=== PATIENT | female | born 1950 | race Caucasian/White ===

== ENCOUNTER 2019-07-24 11:55 | Inpatient (IN) | payer MEDICARE, MEDICAID ==
[~2019-07-24] VITALS: Ht 160 cm; Wt 84.0 kg
[~2019-07-24 11:55] MED LIST: B12,B-12,B 12500 MC1 PO; CARBATROL300 MG PO; COLACE100 MG PEG; FLOMAX0.4 MG PO; LAMICTAL100 MG PEG; MAGNESIUM250 M1 PEG; NEXIUM40 MG PEG; Oyster Shell Calcium; PERCOCET 325 MG1 TA2; PHENOBARBITAL97.2 MG PO; SEROQUEL XR400 MG PO; Synthroid,Levo25 MCG PEG; TYLENOL500 MG PO; VITAMIN B COMPL1 CA1 PO; VITAMIN D400 I1 PO; ZOCOR20 MG PO
[2019-07-24 12:04] VITALS: BP 99/60
--- NOTE | 2019-07-24 12:30 | NUR ---
PT INCONTINENT FOR LARGE AMT SOFT BROWN STOOL. PT CLEANED WITH NEW LINENS. PT TOLERATED.
--- NOTE | 2019-07-24 13:42 | NUR ---
PT INCONTINENT OF LARGE AMT LOOSE BROWN STOOLS. RASH NOTED TO PT'S RIGHT HIP AND UPPER LEG.
[2019-07-24] MEDS ORDERED: ZOVIRAX200 MG/51 PO (13:43)
--- NOTE | 2019-07-24 14:08 | NUR ---
PT INCONTINENT FOR LARGE AMT LIGHT BROWN STOOL. PT GIVEN CLEAN LINENS. CAREGIVER AT BEDSIDE.
[2019-07-24 14:11] LABS: BUN 31 mg/dl (7-24); CHLORIDE 106 mmol/L (98-107); SODIUM 137 mmol/L (136-145)
[2019-07-24 14:13] LABS: POTASSIUM 7.2 mmol/L (3.5-5.1)
--- NOTE | 2019-07-24 14:16 | NUR ---
CRITICAL LAB: POTASSIUM 7.2. DR ARNDT NOTIFIED.
--- NOTE | 2019-07-24 14:56 | NUR ---
PT INCONTINENT OF SMALL AMT BROWN LOOSE STOOLS. PT CLEANED UP
[2019-07-24 15:17] VITALS: BP 125/41
[2019-07-24 16:40] VITALS: BP 128/44
--- NOTE | 2019-07-24 17:29 | NUR ---
SUNRISE AWARE PT TO BE ADMITTED FOR PNEUMONIA AND HYPERKALEMIA
[2019-07-24 17:39] VITALS: BP 105/48
[2019-07-24 18:20] VITALS: BP 118/89
--- NOTE | 2019-07-24 18:20 | NUR ---
Time: 1819 A 68 year old FEMALE admitted to 5E under services of ADAM KIM DO. Pt. arrived via stretcher from ER. Chief complaint: COUGH/CONGESTION, K+ 6.6 ON BLOODWORK AND SHINGLES . SIRISHA CHUN
--- NOTE | 2019-07-24 18:30 | NUR ---
PT PLACED ON WARMING BLANKET FOR A RECTAL TEMP OF 93.8 AWARE
[2019-07-24 19:14] LABS: ABG BASE EXCESS 3.1 mmol/L (-2.0-2.0); ABG HCO3 26.9 mmol/l (22-26); ABG O2 SATURATION 96.2 % (95-97); ARTERIAL BLOOD GAS PCO2 38.2 mmHg (35-45); ARTERIAL BLOOD GAS PH 7.456 (7.35-7.45); ARTERIAL BLOOD GAS PO2 84.7 mmHg (80-90)
[2019-07-24] MEDS ORDERED: AMLODIPINE BESYL5 MG PEG (19:25)
[2019-07-24] MEDS ORDERED: EXELON1 EACH T (19:26)
[2019-07-24] MEDS ORDERED: DOXAZOSIN4 MG PEG (19:26)
[2019-07-24] MEDS ORDERED: FEOSOL,FER220 MG/5 M PEG (19:27)
[2019-07-24] MEDS ORDERED: GLUCERNA 1.5 C237 ML PEG ×2 (19:28→20:39)
[2019-07-24] MEDS ORDERED: LANSOPRAZO15 MG/5 ML PEG (19:36)
[2019-07-24] MEDS ORDERED: KEPPRA500 MG PEG (19:37)
[2019-07-24] MEDS ORDERED: CLARITIN10 MG PEG (19:38)
[2019-07-24 20:00] VITALS: BP 127/69
[2019-07-24] MEDS ORDERED: REGLAN 5MG/5 MG/5 ML PEG (20:11)
[2019-07-24] MEDS ORDERED: LOPRESSOR50 M1 PEG (20:12)
[2019-07-24] MEDS ORDERED: NITROFURANTOIN100 M3 PEG (20:15)
[2019-07-24] MEDS ORDERED: NEUDEXT PEG (20:16)
[2019-07-24] MEDS ORDERED: ONDANSETRON ODT8 MG SL (20:17)
[2019-07-24] MEDS ORDERED: OYSTER SHELL 51 EAC1 PO (20:20)
[2019-07-24] MEDS ORDERED: PHENOBARBITAL97.2 MG PEG (20:23)
[2019-07-24] MEDS ORDERED: POTASSIUM20 MEQ/16 PEG (20:26)
[2019-07-24] MEDS ORDERED: OYSTER SHELL 51 EACH PEG (20:30)
[2019-07-24 21:22] LABS: BUN 29 mg/dl (7-24); CHLORIDE 111 mmol/L (98-107); CREATININE 0.92 mg/dL (0.55-1.02); POTASSIUM 4.9 mmol/L (3.5-5.1); SODIUM 145 mmol/L (136-145)
--- NOTE | 2019-07-24 21:23 | NUR ---
CALLED DR. SEYMOUR IN REGARDS TO HOME MEDICATIONS.
--- NOTE | 2019-07-24 23:30 | NUR ---
ENTERED PT'S ROOM TO CHECK ON PT. FOUND PT LABORED BREATHING, DROWLING AND O2 OF 88%. SAT PT UP IN BED AND O2 CONTINUED TO DROP. CALLED FOR SOME ASSISTANCE AND REQUESTED SUCTION, A NON REBREATHER, AND RESPIRATORY. ATTEMPTED TO SUCTION PT AND UNSUCCESSFUL, O2 DROPPED DOWN TO 72%. CHARGE NURSE CALLED PT'S BROTHER (GUARDIAN) AND NOTIFIED HIM OF PT'S STATUS. RESPIRATORY CAME AND SUCTIONED PT. PT CAME UP TO 90% PT BEGAN BREATHING AT A SLOWER RATE AND REMAINED STABLE. BROTHER CAME UP AND STATED THAT HE WAS GOING TO STAY WITH PT.
--- NOTE | 2019-07-24 23:34 | NUR ---
PT'S BROTHER CALLED & UPDATED ON STATUS. AWARE THEY ARE ALLOWED TO VISIT. SECURITY NOTIFIED THAT THEY MAY BE COMING UP TO THE FLOOR.
--- NOTE | 2019-07-25 05:59 | NUR ---
INFECTIOUS DISEASE CONSULT CALLED OUT. DR. TOMLINSON IS TRANSMITTER ENGINEER IN CHARGE.
[2019-07-25 06:44] LABS: HEMATOCRIT 30.7 % (37.0-47.0); HEMOGLOBIN 9.7 g/dl (12.0-16.0); MEAN CELL VOLUME 104.8 fl (81.0-99.0); MEAN CORPUSCULAR HGB 33.1 pg (27.0-31.0); MEAN CORPUSCULAR HGB CONC 31.6 g/dl (33.0-37.0); MEAN PLATELET VOLUME 11.2 fl (9.6-12.3); PLATELET COUNT AUTOMATED 100 10*3/uL (130-400); RED BLOOD COUNT 2.93 10*6/uL (4.10-5.10); RED CELL DISTRI WIDTH 16.8 % (0-14.5); WHITE BLOOD COUNT 7.9 10*3/uL (4.8-10.8)
[2019-07-25 07:06] LABS: ALBUMIN 2.4 gm/dl (3.1-4.5); BUN 29 mg/dl (7-24); CHLORIDE 108 mmol/L (98-107); CHOLESTEROL 97 mg/dL (<200); HDL CHOLESTEROL 49 mg/dl (40-60); LDL CHOLESTEROL 41 mg/dL (9-159); PHOSPHOROUS 3.9 mg/dL (2.5-4.9); POTASSIUM 4.7 mmol/L (3.5-5.1); SGOT/AST 20 IU/L (3-35); SGPT/ALT 22 U/L (12-78); SODIUM 142 mmol/L (136-145); TRIGLYCERIDES 36 mg/dl (<150); VLDL CHOLESTEROL 7 mg/dL (6-40)
[2019-07-25 07:07] LABS: ACT PARTIAL THROMBO TIME 40.8 SECONDS (20.0-32.1); INTERNATIONAL NORM RATIO 1.2 (2.0-3.5)
[2019-07-25 07:13] LABS: ALKALINE PHOSPHATASE 82 U/L (45-117); FREE T4 1.28 ng/dl (0.76-1.46); TOTAL PROTEIN 6.9 gm/dL (6.4-8.2)
[2019-07-25 07:32] LABS: PLATELET SUFFICIENCY LOW (NORMAL); TOTAL CELLS COUNTED 100 #CELLS
[2019-07-25 07:33] LABS: STOMATOCYTE FEW
[2019-07-25 08:00] VITALS: BP 105/52
[2019-07-25 08:03] LABS: VITAMIN D, 25-HYDROXY 40.1 ng/mL (30-100)
--- NOTE | 2019-07-25 08:15 | NUR ---
Nursing screen received and Occupational Therapy referral received. Thank you. Nichole Davidson OTR/L
--- NOTE | 2019-07-25 08:17 | NUR ---
PHYSICAL THERAPY Screen recieved, PT has been ordered by Thank you. Abigail Gutierrez PT
--- NOTE | 2019-07-25 09:00 | NUR ---
SPEECH PATHOLOGY Nursing screen completed. Patient admitted with pneumonia. Speech pathology services are not warranted at this time. Patient is from [place] with history including CP, learning disability and PEG tube for feeding. This dept. is available should future needs arise. SHRADDHA CAMPBELL MSCCC-BOX CUTTER
--- NOTE | 2019-07-25 09:00 | NUR ---
patient is nonverbal, case management will contact patient's family regarding discharge plan
--- NOTE | 2019-07-25 10:44 | NUR ---
NIC HUERTA [id number] Please refer to the physician's history and physical for past medical history, comorbid conditions, and allergies. Diagnosis: PNEUMONIA HYPERKALEMIA Carter Score: 10,VERY HIGH RISK WOUND DESCRIPTIONS: Wound Number: 1 Location of the wound: right hip Type of wound: rash Thickness: Partial Size: 26.0cm x 9.0cm x 0.1cm Tunneling: none Undermining: none Sinus Tract: none Presence of Exudate: Serosanguineous Amount: Light Color: Red Odor: None Periwound Skin Appearance: Normal Wound edges: approximated Pain (associated with wound): pt unable to state at this time How does patient state this happened? pt unable to state how this happened Surface the patient is resting on: Position Pro SKIN PREVENTION RECOMMENDATION: 1. Pressure redistribution support surface as appropriate 2. Elevate heels 3. Remove boots/TEDS every shift and reapply 4. Head of bed 30 degrees as tolerated 5. Assess nutrition and hydration 6. Manage moisture 7. Avoid the use of containment devices while in bed 8. Use absorptive products on surfaces limit layers of linens on bed 9. Turn and reposition every 1-2 hours in bed and every 1 hour in chair as tolerated 10. Weight shifts every 15 minutes while up in chair 11. Offloading with pillows or device to keep heels elevated off bed 12. Monitor skin at least every shift 13. Inspect under medical devices twice a day WOUND TREATMENT RECOMMENDATIONS: ID is already on consult for area to right hip await recommendations. Cool wet compress qid with calamine qid leave open to air until areas are crusted over
--- NOTE | 2019-07-25 10:46 | NUR ---
Dr. Moreno notified of wound care recommendations and awaiting ID recommendations.
[2019-07-25 12:00] VITALS: BP 132/57
--- NOTE | 2019-07-25 12:55 | NUR ---
PHYSICAL THERAPY Physical therapy evaluation completed, 5E. full details to follow. high complexity determined after evaluation/chart review, [address]. Recommending nursing staff to perform PROM to upper/lower body during daily nursing care for joint maintenance. Recommend returning to shelter at discharge. Thank you Sara Gurrola, PT, DPT
--- NOTE | 2019-07-25 13:05 | NUR ---
Occupational Therapy evaluation completed on 5 with full eval to follow. Precautions include PEG tube,right hip shingle areas-several large non-crusted areas,reverse isolation precautions,dependent in all ADls and mobility, BUE/BLE contractures,no eye contact or ability to follow directions, high complexity level 68580. Recommend no further OT and PROM BUE with daily nursing care and return to custodial or long filler cigar roller machine care. Thank you. Nichole Davidson OTR/l
--- NOTE | 2019-07-25 15:26 | NUR ---
NATURAL RESOURCE TECHNICIAN reached out to [facility], where the patient is from. An RN is on staff daily from 5:30a to 11:30pm. Patient last saw her PCP May and her lab work was last completed in April. NATURAL RESOURCE TECHNICIAN informed RN Hospitalist Coordinator Monique of this. -DAVID Crisostomo
[2019-07-25 16:00] VITALS: BP 142/54
--- NOTE | 2019-07-25 19:19 | NUR ---
24 HR chart check completed.
[2019-07-25 20:00] VITALS: BP 132/60
[2019-07-26] VITALS: BP 136/101
--- NOTE | 2019-07-26 04:16 | NUR ---
Upon discharge recommend patient to follow up for wound care in outpatient setting continue current wound care orders at discharging facility.
[2019-07-26 06:13] LABS: BASO % 0.3 % (0.0-1.0); EOS % 0.5 % (1.0-4.0); HEMATOCRIT 32.6 % (37.0-47.0); HEMOGLOBIN 10.2 g/dl (12.0-16.0); LYMPH # 0.8 10*3/uL (1.3-4.4); LYMPH % 12.9 % (27.0-41.0); MEAN CELL VOLUME 106.5 fl (81.0-99.0); MEAN CORPUSCULAR HGB 33.3 pg (27.0-31.0); MEAN CORPUSCULAR HGB CONC 31.3 g/dl (33.0-37.0); MEAN PLATELET VOLUME 10.5 fl (9.6-12.3); MONO # 0.5 10*3/uL (0.1-1.0); MONO % 8.4 % (3.0-9.0); NEUT % 77.6 % (47.0-73.0); NUCLEATED RED BLOOD CELL 0.5 % (0.0-0.0); PLATELET COUNT AUTOMATED 77 10*3/uL (130-400); RED BLOOD COUNT 3.06 10*6/uL (4.10-5.10); RED CELL DISTRI WIDTH 17.1 % (0-14.5); WHITE BLOOD COUNT 6.4 10*3/uL (4.8-10.8)
[2019-07-26 06:19] LABS: ALBUMIN 2.5 gm/dl (3.1-4.5); ALKALINE PHOSPHATASE 81 U/L (45-117); CHLORIDE 111 mmol/L (98-107); CREATININE 0.85 mg/dL (0.55-1.02); SGOT/AST 27 IU/L (3-35); SGPT/ALT 21 U/L (12-78); TOTAL PROTEIN 7.2 gm/dL (6.4-8.2)
[2019-07-26 06:38] LABS: SODIUM 145 mmol/L (136-145)
[2019-07-26 06:43] LABS: BUN 16 mg/dl (7-24); POTASSIUM 3.7 mmol/L (3.5-5.1)
--- NOTE | 2019-07-26 07:00 | NUR ---
RE-CALLED INFECTIOUS DISEASE. DR. BROOKS IS RADIO STATION ENGINEER. CONSULT COMPLETED AGAIN.
--- NOTE | 2019-07-26 08:23 | NUR ---
DAVID reached out to the patients brother Roberto. Roberto is the patients Guardian. Plan for the patient is to return to [facility] when medically stable. -DAVID Crisostomo
[2019-07-26] MEDS ORDERED: VALTREX1000 MG PO (10:20)
--- NOTE | 2019-07-26 11:06 | NUR ---
ADMINISTRATIVE PROFESSIONAL faxed Clinical updates to [facility]. -DAVID Crisostomo
[2019-07-26 12:00] VITALS: BP 122/90
--- NOTE | 2019-07-26 15:35 | NUR ---
Pt decreased form 10L HFNC to 8L HFNC. Pts SpO2 was 100%.
[2019-07-26 16:00] VITALS: BP 131/47
[2019-07-26 20:00] VITALS: BP 131/61
--- NOTE | 2019-07-26 20:15 | NUR ---
IV SITE INFILTRATED. AREA RED AND EDEMATOUS. IV DISCONTINUED AT THIS TIME. WARM COMPRESS APPLIED.
--- NOTE | 2019-07-26 20:21 | NUR ---
SPOKE WITH DR TOMLINSON REGARDING PATIENT'S INFILTRATED IV SITE. ORDERS RECIEVED TO PUT IN A NEW IV SITE. IF UNSUCCESSFUL, DR TOMLINSON STATED TO HOLD GANCICLOVIR AND DISCONTINUE VANCOMYCIN IV AND ZOSYN IV AND START PATIENT ON BACTRIM DOUBLE STRENGTH BID AND LEVAQUIN 750 MG DAILY BOTH THROUGH PATIENT'S PEG TUBE. WILL ATTEMPT TO PUT IN A NEW IV SITE.
--- NOTE | 2019-07-26 22:25 | NUR ---
WAS NOT ABLE TO OBTAIN IV ACCESS. PER DR TOMLINSON'S ORDERS I WILL HOLD GANCICLOVIR AND DISCONTINUE VANCOMYCIN IV AND ZOSYN IV AND ORDER BACTRIM DOUBLE STRENGTH 1 TABLET BID AND LEVOQUIN 750 MG ONCE DAILY BOTH TO BE GIVEN THROUGH PATIENT'S PEG TUBE.
--- NOTE | 2019-07-26 23:39 | NUR ---
PATIENT SEEMED DISTRESSED, BREATHING HARDER. PATIENT REPOSITIONED AND HEAD OF BED AT 30 DEGREES. PATIENT'S BREATHING BECAME EASY, REGULAR, AND UNLABORED AFTER POSITIONING HEAD OF BED. PATIENT RESTING IN BED NOW WITH NO SIGNS OR SYMPTOMS OF DISTRESS. WILL CONTINUE TO MONITOR.
[2019-07-27] VITALS: BP 137/70
--- NOTE | 2019-07-27 01:28 | NUR ---
Patient resting quietly with no signs of discomfort. Respirations easy and regular. pulse ox 96%. Vital signs stable. No overt distress. GERI FALK
--- NOTE | 2019-07-27 01:59 | NUR ---
24 HR chart check completed.
[2019-07-27 07:34] LABS: BASO % 0.1 % (0.0-1.0); EOS % 0.1 % (1.0-4.0); HEMATOCRIT 31.3 % (37.0-47.0); HEMOGLOBIN 9.7 g/dl (12.0-16.0); LYMPH # 0.9 10*3/uL (1.3-4.4); LYMPH % 11.7 % (27.0-41.0); MEAN CELL VOLUME 106.1 fl (81.0-99.0); MEAN CORPUSCULAR HGB 32.9 pg (27.0-31.0); MEAN PLATELET VOLUME 10.7 fl (9.6-12.3); MONO # 0.7 10*3/uL (0.1-1.0); MONO % 8.5 % (3.0-9.0); NEUT # 6.3 10*3/uL (2.3-7.9); NEUT % 79.3 % (47.0-73.0); NUCLEATED RED BLOOD CELL 0.4 % (0.0-0.0); PLATELET COUNT AUTOMATED 79 10*3/uL (130-400); RED BLOOD COUNT 2.95 10*6/uL (4.10-5.10); RED CELL DISTRI WIDTH 16.9 % (0-14.5)
[2019-07-27 07:45] LABS: ALBUMIN 2.5 gm/dl (3.1-4.5); ALKALINE PHOSPHATASE 91 U/L (45-117); BUN 22 mg/dl (7-24); CHLORIDE 111 mmol/L (98-107); CREATININE 0.94 mg/dL (0.55-1.02); POTASSIUM 3.5 mmol/L (3.5-5.1); SGOT/AST 24 IU/L (3-35); SGPT/ALT 20 U/L (12-78); SODIUM 144 mmol/L (136-145); TOTAL PROTEIN 7.4 gm/dL (6.4-8.2)
[2019-07-27 08:00] VITALS: BP 123/70
--- NOTE | 2019-07-27 11:49 | NUR ---
DAVDI reached out to the patients brother who is her Guardian. He stated that he wants the patient to return to [facility] and for her not to go to a SNF. DAVID informed RN Hospitalist Coordinator of this. -DAVID Crisostomo
[2019-07-27 12:00] VITALS: BP 122/85; BP 129/55
--- NOTE | 2019-07-27 12:19 | NUR ---
FOUNTAIN ROLLER ASSEMBLER faxed updates to [facility]. -DAVID Crisostomo
--- NOTE | 2019-07-27 14:03 | NUR ---
PATIENT SLEEPING. NO SIGNS OF DISTRESS NOTED.
[2019-07-27 16:00] VITALS: BP 149/66
[2019-07-27 20:00] VITALS: BP 138/65
[2019-07-28] VITALS: BP 127/67
--- NOTE | 2019-07-28 02:45 | NUR ---
bed exchanged for new one at this time as prior bed was broken and not functioning correctly.
--- NOTE | 2019-07-28 06:33 | NUR ---
tube feed given through peg tube at this time. patient tolerated well, head of bed remains 30 degrees or higher at all times to prevent aspiration. patient repositioned as well as turned in the bed. rn will continue to monitor
[2019-07-28 06:40] LABS: BUN 26 mg/dl (7-24); CHLORIDE 113 mmol/L (98-107); CREATININE 0.99 mg/dL (0.55-1.02); POTASSIUM 3.1 mmol/L (3.5-5.1); SODIUM 145 mmol/L (136-145)
[2019-07-28 06:42] LABS: BASO % 0.1 % (0.0-1.0); EOS % 0.1 % (1.0-4.0); HEMATOCRIT 30.2 % (37.0-47.0); HEMOGLOBIN 9.6 g/dl (12.0-16.0); LYMPH # 0.9 10*3/uL (1.3-4.4); LYMPH % 11.3 % (27.0-41.0); MEAN CELL VOLUME 104.1 fl (81.0-99.0); MEAN CORPUSCULAR HGB 33.1 pg (27.0-31.0); MEAN CORPUSCULAR HGB CONC 31.8 g/dl (33.0-37.0); MEAN PLATELET VOLUME 11.1 fl (9.6-12.3); MONO # 0.7 10*3/uL (0.1-1.0); MONO % 8.8 % (3.0-9.0); NEUT # 6.3 10*3/uL (2.3-7.9); NEUT % 79.2 % (47.0-73.0); NUCLEATED RED BLOOD CELL 0.3 % (0.0-0.0); PLATELET COUNT AUTOMATED 78 10*3/uL (130-400); RED CELL DISTRI WIDTH 16.7 % (0-14.5)
[2019-07-28 08:00] VITALS: BP 109/60
[2019-07-28 12:00] VITALS: BP 134/42
[2019-07-28 16:00] VITALS: BP 136/56
--- NOTE | 2019-07-28 17:00 | NUR ---
AXILLARY TEMP 99.5 AT THIS TIME; MEDICATED WITH TYLENOL VIA PEG TUBE. WILL MONITOR FOR EFFECTIVENESS.
[2019-07-28 20:00] VITALS: BP 157/62
[2019-07-29] VITALS: BP 140/95
[2019-07-29 06:29] LABS: BASO % 0.1 % (0.0-1.0); EOS # 0.1 10*3/uL (0.0-0.4); EOS % 1.3 % (1.0-4.0); HEMATOCRIT 31.1 % (37.0-47.0); HEMOGLOBIN 9.7 g/dl (12.0-16.0); LYMPH # 1.2 10*3/uL (1.3-4.4); LYMPH % 16.3 % (27.0-41.0); MEAN CORPUSCULAR HGB 32.4 pg (27.0-31.0); MEAN CORPUSCULAR HGB CONC 31.2 g/dl (33.0-37.0); MEAN PLATELET VOLUME 11.7 fl (9.6-12.3); MONO # 0.5 10*3/uL (0.1-1.0); MONO % 7.5 % (3.0-9.0); NEUT # 5.3 10*3/uL (2.3-7.9); NEUT % 74.2 % (47.0-73.0); NUCLEATED RED BLOOD CELL 0.3 % (0.0-0.0); PLATELET COUNT AUTOMATED 67 10*3/uL (130-400); RED BLOOD COUNT 2.99 10*6/uL (4.10-5.10); RED CELL DISTRI WIDTH 16.4 % (0-14.5); WHITE BLOOD COUNT 7.2 10*3/uL (4.8-10.8)
[2019-07-29 06:45] LABS: BUN 24 mg/dl (7-24); CHLORIDE 112 mmol/L (98-107); CREATININE 0.77 mg/dL (0.55-1.02); POTASSIUM 3.2 mmol/L (3.5-5.1); SODIUM 145 mmol/L (136-145)
[2019-07-29 08:00] VITALS: BP 128/97
[2019-07-29 12:00] VITALS: BP 133/67
[2019-07-29] MEDS ORDERED: PREDNISONE10 MG PO (13:48)
[2019-07-29] MEDS ORDERED: KLOR-CON M2020 ME1 PEG (13:48)
[2019-07-29 16:00] VITALS: BP 141/61
--- NOTE | 2019-07-29 17:24 | NUR ---
NOTIFIED OF CONSULT AND CT CHEST RESULTS.
[2019-07-29 20:00] VITALS: BP 161/84
--- NOTE | 2019-07-29 22:00 | NUR ---
TUBE FEEDING WAS GIVEN VIA PEG TUBE. PT TOLERATED FEEDING. HEAD OF BED WAS AT 30 DEGREES AND REMAINS THERE. WILL CONTINUE TO MONITOR PT.
--- NOTE | 2019-07-29 23:55 | NUR ---
24 HR chart check completed.
[2019-07-30] VITALS: BP 132/70
--- NOTE | 2019-07-30 05:43 | NUR ---
TUBE FEEDING WAS GIVEN VIA PEG TUBE. PT TOLERATED FEEDING. HEAD OF BED WAS 30 DEGREES AND REMAINS AT 30 DEGREES. WILL CONTINUE TO MONITOR PATIENT.
[2019-07-30 06:53] LABS: HEMATOCRIT 30.3 % (37.0-47.0); HEMOGLOBIN 9.2 g/dl (12.0-16.0); LYMPH # 0.9 10*3/uL (1.3-4.4); LYMPH % 20.2 % (27.0-41.0); MEAN CELL VOLUME 104.1 fl (81.0-99.0); MEAN CORPUSCULAR HGB 31.6 pg (27.0-31.0); MEAN CORPUSCULAR HGB CONC 30.4 g/dl (33.0-37.0); MEAN PLATELET VOLUME 10.8 fl (9.6-12.3); MONO # 0.3 10*3/uL (0.1-1.0); NEUT # 3.2 10*3/uL (2.3-7.9); NEUT % 71.9 % (47.0-73.0); NUCLEATED RED BLOOD CELL 0.4 % (0.0-0.0); PLATELET COUNT AUTOMATED 70 10*3/uL (130-400); RED BLOOD COUNT 2.91 10*6/uL (4.10-5.10); RED CELL DISTRI WIDTH 16.2 % (0-14.5); WHITE BLOOD COUNT 4.5 10*3/uL (4.8-10.8)
[2019-07-30 07:23] LABS: BUN 27 mg/dl (7-24); CHLORIDE 112 mmol/L (98-107); POTASSIUM 3.4 mmol/L (3.5-5.1); SODIUM 144 mmol/L (136-145)
[2019-07-30 07:24] LABS: CREATININE 0.83 mg/dL (0.55-1.02)
[2019-07-30 08:00] VITALS: BP 134/54
--- NOTE | 2019-07-30 08:16 | NUR ---
RADIAL DRILL PRESS OPERATOR FOR PLASTIC faxed updates to [facility]. Patient will return to [facility] at discharge. -DAVID Crisostomo
--- NOTE | 2019-07-30 09:19 | NUR ---
DAVID received call from [facility]. He stated that if the patient were to have IVAB upon discharge patient should go to [facility]. He stated he is more than willing to order a High Flow Concentrator for the patient, butthey are not able to handle the IVAB unless they are switched. DAVID explained that a SNF was presented to the patients brother and he refused. DAVID will speak with the patients brother about [facility] and will have Kat take a look at the patient. -DAVID Crisostomo
--- NOTE | 2019-07-30 09:30 | NUR ---
DAVID spoke with patients brother Roberto. He is agreeable to have Kat review the patients clinicals. -DAVID Crisostomo
[2019-07-30 12:00] VITALS: BP 143/61
--- NOTE | 2019-07-30 13:58 | NUR ---
Patient has been denied by [facility]. Patients IVAB has been switched to oral meds. DAVID reached out to Sammy at [facility] to order a High Flow Concentrator for the patient to return with. DAVID left message for a return call. MASTER GLAZIER faxed updates to [facility]. -DAVID Crisostomo
--- NOTE | 2019-07-30 14:02 | NUR ---
Luz Maria barone returned ULTRASONIC CLEANER call. He is ordering Concentrator for the patient now and will let this ULTRASONIC CLEANER know when they are able to have it in the building for the patient. -DAVID Crisostomo
[2019-07-30 16:00] VITALS: BP 119/87
[2019-07-30 20:00] VITALS: BP 126/60
--- NOTE | 2019-07-30 20:33 | NUR ---
24 HR chart check completed.
--- NOTE | 2019-07-30 21:00 | NUR ---
RESTING IN BED. NON-VERBAL. RESPIRATIONS EASY. LUNGS DIMINISHED. PULSE OX 93% WITH O2 IN USE 8L HIGH FLOW. PEG TUBE PATENT AND INTACT, PLACEMENT VERIFIED VIA AIR BOLUS. CALL LIGHT WITHIN REACH. BED ALARM MAINTAINED
--- NOTE | 2019-07-30 22:00 | NUR ---
PEG FEEDING ADMINISTERED. FLUSHED PER ORDER. PATIENT TOLERATED
[2019-07-31] VITALS: BP 141/74
--- NOTE | 2019-07-31 | NUR ---
RESTING WITH EYES CLOSED. RESPIRATIONS EASY. VSS. CALL LIGHT WITHIN REACH BED ALARM MAINTAINED FOR SAFETY
--- NOTE | 2019-07-31 03:00 | NUR ---
RESTING WITH EYES CLOSED. ALARM MAINTAINED
--- NOTE | 2019-07-31 06:00 | NUR ---
RESTED THROUGHOUT NIGHT WITH NO DISTRESS NOTED. RESPIRATIONS EASY. O2 IN USE VIA HIGH-FLOW NASAL CANNULA. CALL LIGHT WITH REACH. BED ALARM MAINTAINED FOR SAFETY
[2019-07-31 06:49] LABS: BASO % 0.2 % (0.0-1.0); EOS # 0.1 10*3/uL (0.0-0.4); HEMATOCRIT 33.7 % (37.0-47.0); HEMOGLOBIN 10.5 g/dl (12.0-16.0); LYMPH # 1.5 10*3/uL (1.3-4.4); LYMPH % 24.7 % (27.0-41.0); MEAN CORPUSCULAR HGB 32.7 pg (27.0-31.0); MEAN CORPUSCULAR HGB CONC 31.2 g/dl (33.0-37.0); MONO # 0.5 10*3/uL (0.1-1.0); MONO % 9.1 % (3.0-9.0); NEUT # 3.8 10*3/uL (2.3-7.9); NEUT % 63.5 % (47.0-73.0); PLATELET COUNT AUTOMATED 79 10*3/uL (130-400); RED BLOOD COUNT 3.21 10*6/uL (4.10-5.10); WHITE BLOOD COUNT 5.9 10*3/uL (4.8-10.8)
[2019-07-31 07:16] LABS: BUN 25 mg/dl (7-24); CHLORIDE 111 mmol/L (98-107); CREATININE 0.72 mg/dL (0.55-1.02); PHOSPHOROUS 1.4 mg/dL (2.5-4.9); POTASSIUM 3.5 mmol/L (3.5-5.1); SODIUM 144 mmol/L (136-145)
[2019-07-31 08:00] VITALS: BP 146/66
--- NOTE | 2019-07-31 08:03 | NUR ---
[facility]. Patient is able to return when medically stable. Sammy requested any orders be sent to him, along with discharge summary. RESOURCE ECONOMIST will fax them when available. -DAVID Crisostomo
--- NOTE | 2019-07-31 10:57 | NUR ---
SHEET METAL TECHNICIAN faxed updates to [facility]. -DAVID Crisostomo
--- NOTE | 2019-07-31 11:35 | NUR ---
PAPER FOLDER received notice of patients discharge. PAPER FOLDER spoke with BRYAN Concepcion. PAPER FOLDER spoke reached out to [facility], they are able to transport the patient at pm. PAPER FOLDER notified Mery at [facility] who stated she would let the RN know. PAPER FOLDER contacted Sammy at [facility] and patients brother. They are aware of transport time. PAPER FOLDER will fax final discharge summary when available. -DAVID Crisostomo
[2019-07-31 12:00] VITALS: BP 147/65
--- NOTE | 2019-07-31 15:13 | NUR ---
NURSE TO NURSE REPORT GIVEN TO SUNRISE. PATIENT AWAITING TRANSPORT VIA AMBULANCE.
--- NOTE | 2019-07-31 15:55 | NUR ---
PATIENT PICKED UP BY [facility].
== END 2019-07-31 16:48 | DRG 871 ==
LOC: ED 11:55 → 5E 17:08 → EDHOLD 17:08 → 5E 17:14
PROVIDERS: Emergency Medicine; Internal Medicine; ADMIT Internal Medicine
DX: A41.9 Sepsis, unspecified organism (principal); J69.0 Pneumonitis due to inhalation of food and vomit; J96.01 Acute respiratory failure with hypoxia; E44.0 Moderate protein-calorie malnutrition; N17.9 Acute kidney failure, unspecified; B02.9 Zoster without complications; G80.9 Cerebral palsy, unspecified; E87.5 Hyperkalemia; G40.909 Epilepsy, unspecified, not intractable, without status epilepticus; K57.90 Diverticulosis of intestine, part unspecified, without perforation or abscess without bleeding; K21.9 Gastro-esophageal reflux disease without esophagitis; M81.0 Age-related osteoporosis without current pathological fracture; N39.490 Overflow incontinence; E03.9 Hypothyroidism, unspecified; I11.0 Hypertensive heart disease with heart failure; I50.9 Heart failure, unspecified; D69.6 Thrombocytopenia, unspecified; Z66 Do not resuscitate; Z51.5 Encounter for palliative care; E78.5 Hyperlipidemia, unspecified; E66.9 Obesity, unspecified; R65.20 Severe sepsis without septic shock; D53.9 Nutritional anemia, unspecified; F41.9 Anxiety disorder, unspecified; F03.90 Unspecified dementia, unspecified severity, without behavioral disturbance, psychotic disturbance, mood disturbance, and anxiety; E55.9 Vitamin D deficiency, unspecified; M40.209 Unspecified kyphosis, site unspecified; K31.84 Gastroparesis; E16.2 Hypoglycemia, unspecified; Z68.32 Body mass index [BMI] 32.0-32.9, adult; Z93.1 Gastrostomy status; Z86.73 Personal history of transient ischemic attack (TIA), and cerebral infarction without residual deficits; Z82.49 Family history of ischemic heart disease and other diseases of the circulatory system; Z83.3 Family history of diabetes mellitus; Z79.899 Other long term (current) drug therapy